=== PATIENT | female | born 1985 | race Caucasian/White ===

== ENCOUNTER 2020-10-25 03:26 | Emergency (ER) | payer SELFPAY ==
[~2020-10-25] VITALS: Ht 154.9 cm; Wt 88.9 kg
[2020-10-25 03:45] VITALS: BP_SYST 155
[2020-10-25 04:35] VITALS: BP_SYST 155
== END 2020-10-25 04:35 | disposition home or self-care (01) ==
LOC: SED 03:26
DX: J06.9 Acute upper respiratory infection, unspecified (principal); Z20.828 Contact with and (suspected) exposure to other viral communicable diseases
CPT/HCPCS: 99283; U0003; C9803

== ENCOUNTER 2021-02-26 15:25 | Emergency (ER) | payer SELFPAY ==
[~2021-02-26] VITALS: Ht 157.5 cm; Wt 88.9 kg
[2021-02-26 15:44] VITALS: BP_SYST 178
--- NOTE | 2021-02-26 16:20 | NUR ---
Patient to ER bed 5 to gown for evaluation. Side rails up.
--- NOTE | 2021-02-26 16:25 | NUR ---
PT ARRIVES FROM HOME W/ C/O ITCHY EYES AND HAS BEEN FEELING WEEK AND TIRED SINCE THIS THURSDAY. PT DENIES ANY EXPOSURE TO COVID AND HAS NOT BEEN TESTED FOR COVID.
--- NOTE | 2021-02-26 16:28 | NUR ---
RAPID COVID SWAB COLLECTED AND SENT TO THE LAB
--- NOTE | 2021-02-26 16:40 | NUR ---
ER Dr. Chu at bedside examining patient.
--- NOTE | 2021-02-26 17:47 | NUR ---
PCR SWAB SENT
[2021-02-26 17:52] VITALS: BP_SYST 132
--- NOTE | 2021-02-26 17:52 | NUR ---
Patient given written and verbal discharge instructions and verbalizes understanding. ER MD discussed with patient the results and treatment provided. Patient in stable condition. ID arm band removed. NO RX given. Patient educated on pain management and to follow up with PMD. Pain Scale . Opportunity for questions provided and answered.
== END 2021-02-26 17:52 | disposition home or self-care (01) ==
LOC: SED 15:25
DX: R05 Cough (principal); R09.81 Nasal congestion; R51.9 Headache, unspecified; R03.0 Elevated blood-pressure reading, without diagnosis of hypertension; Z20.822 Contact with and (suspected) exposure to COVID-19
CPT/HCPCS: 36415; 87426; 99283; C9803; U0003